=== PATIENT | female | born 1975 | race Caucasian/White ===

== ENCOUNTER → 2018-09-07 | Day surgery (SDC) | payer OTHER ==
[~2018-09-07] MED LIST: ACYCLOVIR 400400 MG; ATORVASTATIN CA20 MG; CYMBALTA60 MG PO; HUMALOG100 UNIT/1 SUBQ; MEDI-MECLIZINE25 MG PO; NEURONTIN 400400 M1 PO; PRAZOSIN 1 MG CA1 M1 PO; PRAZOSIN HCL2 MG; TOPAMAX 100 MG100 MG; TOUJEO MAX300 UNIT/1 SUBQ; TRILEPTAL 300300 MG; TRILEPTAL600 MG PO; VALIUM5 MG PO; VITAMIN D250000 UNIT PO; XANAX1 MG; ZOFRAN ODT4 MG PO
[2018-09-07 12:25] LABS: HEMATOCRIT 37.8 % (37.0-47.0); HEMOGLOBIN 13.2 gm/dL (12.0-15.0); MCH 30.1 pg (26.0-34.0); MCHC 34.9 g/dL (28.0-37.0); MCV 86.5 fL (80.0-100.0); MPV 7.8 fl. (7.2-11.1); RBC 4.37 mil/uL (4.20-5.00); RDW-CV 12.6 % (10.5-14.5); WBC 8.7 thou/uL (4.0-11.0)
[2018-09-07 12:28] LABS: CALCIUM 9.3 mg/dL (8.5-10.1); CREATININE 0.7 mg/dL (0.6-1.3); POTASSIUM 3.7 mmol/L (3.5-5.1)
--- NOTE | 2018-09-07 15:38 | EKG ---
[place] [address] ELECTROCARDIOGRAM REPORT Name: ERNESTO DAHL Room: [facility]#: [id number] Admission: 09/07/18 Attend Phys: Mook Coffman II Discharge: Date of : 71 Report #: [id number] THIS REPORT FOR: //name// [facility] Test Date: 2018-09-07 Test Time: 12:18:09 Pat Name: ERNESTO DAHL Department: Room: Gender: F Garment Mender: : 1975 Requested By: Mook Coffman Order Number: [id number] Maryam MD: Pritesh Alexandra Measurements Intervals [place] Rate: 91 P: 50 PA: 143 QRS: 13 QRSD: 89 T: 32 QT: 348 QTc: 429 Interpretive Statements Sinus rhythm Compared to ECG 11/30/2016 23:33:16 rate increased Electronically Signed On 09-07-2018 15:37:53 PERSONNEL COORDINATOR by Pritesh Alexandra [email or web address] <ELECTRONICALLY SIGNED> By: Pritesh Alexandra MD, [facility] 09/07/18 1537 1218 1218 Pritesh Alexandra MD, FACC /EPI
--- NOTE | 2018-09-11 10:35 | OP ---
[address] [address] OPERATIVE REPORT Name: ERNESTO DAHL Room: [facility]#: [id number] Admission: 09/07/18 Attend Phys: Mook Coffman II Discharge: Date of : 71 Report #: [id number] THIS REPORT FOR: //name// CC: Marlys Coffman DATE OF SERVICE: 09/07/2018 PREOPERATIVE DIAGNOSIS: Left knee anterior cruciate ligament tear. POSTOPERATIVE DIAGNOSES: 1. Left knee anterior cruciate ligament tear. 2. Lateral meniscus tear. 3. Grade 3 chondromalacia, patellofemoral groove. PROCEDURE PERFORMED: 1. Left knee arthroscopic surgery with ACL reconstruction with allograft. 2. Abrasion chondroplasty, patellofemoral groove down to bleeding bone. 3. Partial lateral meniscectomy. SURGEON: Mook Coffman II, DO. [employer] BUSINESS INTELLIGENCE CONSULTANT: MARIA DE JESUS Becker. ANESTHESIA: Per operative record. ESTIMATED BLOOD LOSS: Minimal. ANTIBIOTICS: Per operative record. DRAINS: None. COMPLICATIONS: None. DISPOSITION: Stable to recovery room. DESCRIPTION OF PROCEDURE: The patient was taken to the operative suite and placed supine on the operating table with appropriate anesthesia. The patient's left knee was sterilely prepped and draped with well-padded knee arthroscopic paniagua. Surgery begun by making a lateral portal incision. The arthroscope was advanced in the joint. There was shown to be a posterior horn lateral meniscus tear, which was debrided back to good stable margins utilizing baskets and shaver as well as Coblation wand to smooth the tissue. There was shown to be grade 3 chondromalacia in patellofemoral groove. Utilizing a shaver, the loose cartilage was removed from around the patellofemoral groove. It was then smoothed utilizing Coblation wand down to bleeding bone[place] [address] OPERATIVE REPORT Name: ERNESTO DAHL Room: [facility]#: [id number] Admission: 09/07/18 Attend Phys: Mook Coffman II Discharge: Date of : 71 Report #: [id number] chondroplasty was being performed. Attention was then turned back to the meniscus. There was shown to be no evidence of tear and an intact posterior horn. The ACL was then evaluated which had shown to have a tear throughout the mid portion up into the femoral attachment and complete rupture. Utilizing a shaver, the stump was debrided down to the tibia and around the posterior femur. The graft was selected and sized to appropriate size. A FlipCutter was then utilized to ream the tibia in appropriate fashion. Over the top guide was then utilized for the femur along its posterior portion, and a guidepin was placed up and down to the lateral cortex. This was then reamed utilizing the appropriate reamer up to appropriate depth. Excess bone debris was then removed utilizing a shaver throughout the knee joint and these reamings. The graft was then selected after it had been pretensioned and transferred over an Endobutton. This Endobutton was then deployed up into the lateral cortex of the femur, and the graft was then cinched into place in appropriate fashion. After it was cinched in place, it was then secured utilizing a distal screw up into the tibia in appropriate fashion. This was probed and shown to be intact. Excellent fixation of the graft and excellent stability with negative drawer test at the conclusion of the case. Final images were taken of the knee. It was then arthroscopically closed, closed with 4-0 nylon in simple fashion. Dermabond and sterile dressing applied. Zeyad wrap applied and the patient transported to recovery room in stable condition. Counts were correct throughout the procedure. <ELECTRONICALLY SIGNED> By: Mook Coffman II, DO 09/11/18 1035 0838 0923Mook Coffman II, DO /nt
== END | disposition home or self-care (01) ==
LOC: M.SUR 06:33
PROVIDERS: Orthopaedic Surgery
DX: S83.512A Sprain of anterior cruciate ligament of left knee, initial encounter (principal); S83.282A Other tear of lateral meniscus, current injury, left knee, initial encounter; M22.42 Chondromalacia patellae, left knee; Z88.0 Allergy status to penicillin; Z88.8 Allergy status to other drugs, medicaments and biological substances; Z79.899 Other long term (current) drug therapy; Z79.4 Long term (current) use of insulin; X58.XXXA Exposure to other specified factors, initial encounter; Y93.89 Activity, other specified; Y92.89 Other specified places as the place of occurrence of the external cause; Y99.8 Other external cause status

== ENCOUNTER 2018-11-02 04:57 | Emergency (ER) | payer OTHER ==
[~2018-11-02] VITALS: Ht 170.2 cm; Wt 118.4 kg
[2018-11-02] MEDS ORDERED: PERCOCET 5-3251 EACH PO (05:22)
[2018-11-02 05:40] VITALS: BP 153/73
== END 2018-11-02 05:43 | disposition home or self-care (01) ==
LOC: M.ERS 04:57
DX: M25.562 Pain in left knee (principal); G43.909 Migraine, unspecified, not intractable, without status migrainosus; F31.9 Bipolar disorder, unspecified; F17.210 Nicotine dependence, cigarettes, uncomplicated; Z88.1 Allergy status to other antibiotic agents; Z88.0 Allergy status to penicillin; Z88.8 Allergy status to other drugs, medicaments and biological substances; Z79.4 Long term (current) use of insulin; Z90.710 Acquired absence of both cervix and uterus

== ENCOUNTER 2019-09-24 20:02 | Emergency (ER) | payer OTHER ==
[~2019-09-24] VITALS: Ht 170.2 cm; Wt 123.8 kg
[~2019-09-24 20:02] MED LIST changes: +PERCOCET 5-3251 EACH PO
[2019-09-24] MEDS ORDERED: TRAZODONE HCL50 MG PO (20:15)
[2019-09-24] MEDS ORDERED: DIAZEPAM 10 MG10 M1 PO (20:15)
[2019-09-24 22:58] LABS: ABSOLUTE BASOPHILS 0.1 thou/uL (0.0-0.2); ABSOLUTE EOSINOPHILS 0.2 thou/uL (0.0-0.7); ABSOLUTE LYMPHOCYTES 3.1 thou/uL (0.8-5.3); ABSOLUTE MONOCYTES 0.5 thou/uL (0.0-1.2); ABSOLUTE NEUTROPHILS 9.7 thou/uL (1.6-8.1); BASOPHILS 1.1 %; EOSINOPHILS 1.7 %; HEMATOCRIT 36.8 % (37.0-47.0); HEMOGLOBIN 12.7 gm/dL (12.0-15.0); LYMPHOCYTES 22.6 %; MCHC 34.4 g/dL (28.0-37.0); MCV 87.1 fL (80.0-100.0); MONOCYTES 3.5 %; MPV 8.3 fl. (7.2-11.1); NUCLEATED RBCS 0 /100WBC; PLATELET COUNT* 308 thou/uL (150-400); POLYS 71.1 %; RBC 4.23 mil/uL (4.20-5.00); RDW-CV 13.8 % (10.5-14.5); WBC 13.6 thou/uL (4.0-11.0)
[2019-09-24 23:18] LABS: CALCIUM 9.3 mg/dL (8.5-10.1); CREATININE 0.6 mg/dL (0.6-1.3); POTASSIUM 3.8 mmol/L (3.5-5.1)
[2019-09-24] MEDS ORDERED: CLINDAMYCIN HC150 MG PO (23:25)
[2019-09-24] MEDS ORDERED: HYDROCODON-ACE1 EAC8 PO (23:25)
[2019-09-24 23:39] VITALS: BP 132/75
== END 2019-09-24 23:42 | disposition home or self-care (01) ==
LOC: M.ERS 20:02
PROVIDERS: Emergency Medicine
DX: N76.4 Abscess of vulva (principal); E11.9 Type 2 diabetes mellitus without complications; G43.909 Migraine, unspecified, not intractable, without status migrainosus; F31.9 Bipolar disorder, unspecified; F17.210 Nicotine dependence, cigarettes, uncomplicated; Z90.710 Acquired absence of both cervix and uterus; Z88.0 Allergy status to penicillin; Z88.1 Allergy status to other antibiotic agents; Z88.8 Allergy status to other drugs, medicaments and biological substances